=== PATIENT | female | born 1940 | race African-American/Black ===

== ENCOUNTER 2019-06-30 09:10 | Emergency (ER) | payer BC, MEDICAID, OTHER ==
[~2019-06-30] VITALS: Ht 165.1 cm; Wt 100.0 kg
[~2019-06-30 09:10] MED LIST: ASA; ASPI-986; ATOR10TA; CRESTOR; FLUCONAZOLE; HYDR-4009; LEVOTHYROXINE; OXYB15TA9; OXYBUTYNIN; SYN150; VERA240C2; VERAPAMIL
[2019-06-30] MEDS ORDERED: OXYCODONE HCL/ACETAMINOPHEN 5/325MG TABLET PO ONE (09:30)
[2019-06-30] MEDS ORDERED: MORPHINE SULFATE 4 MG/ML CPJ (NOT FOR IM USE) IV STA (11:58)
[2019-06-30 12:42] LABS: EOSINOPHILS % 0.1 % (0.0-5.0); HEMATOCRIT. 34.3 % (36.0-48.0); HEMOGLOBIN. 11.5 g/dL (12.0-16.0); LYMPHOCYTES % 57.2 % (20.0-50.0); MEAN CORPUSCULAR HEMOGLOBIN 27.8 pg (28.0-32.0); MEAN CORPUSCULAR VOLUME 82.8 fL (81.0-99.0); MONOCYTES % 3.8 % (2.0-8.0); NEUTROPHILS % 37.9 % (40.0-76.0); PLATELET 200 x1000/uL (130-400); RED BLOOD CELL COUNT 4.14 mill/uL (4.2-5.4); RED CELL DISTRIBUTION WIDTH 15.8 % (11.6-14.6)
[2019-06-30 12:47] LABS: CHLORIDE 105 mEq/L (98-107)
[2019-06-30 12:51] LABS: PROTHROMBIN TIME 11.1 sec (9.6-11.0)
[2019-06-30 14:23] VITALS: BP 156/71
== END 2019-06-30 14:39 | disposition home or self-care (01) ==
LOC: ER 09:10 → SUPCPDRO 12:06 → ER 14:39
DX: M25.552 Pain in left hip (principal); I10 Essential (primary) hypertension; Z88.2 Allergy status to sulfonamides; Z79.899 Other long term (current) drug therapy; Z79.82 Long term (current) use of aspirin; Z90.49 Acquired absence of other specified parts of digestive tract
CPT/HCPCS: 36415; 72192; 73502; 73700; 80053; 85025; 85610; 96374; 99285; J2270

== ENCOUNTER 2022-05-29 12:43 | Emergency (ER) | payer BC ==
[~2022-05-29] VITALS: Ht 157.5 cm; Wt 104.0 kg
[2022-05-29] MEDS ORDERED: ONDANSETRON HCL 4MG/2ML INJ IV STA (15:11)
[2022-05-29] MEDS ORDERED: MORPHINE SULFATE 4 MG/ML CPJ (NOT FOR IM USE) IV STA (15:11)
[2022-05-29] MEDS ORDERED: SODIUM CHLORIDE 0.9% 1,000 ML IV ONE (15:15)
[2022-05-29 16:48] LABS: HEMATOCRIT. 26.2 % (36.0-48.0); HEMOGLOBIN. 8.8 g/dL (12.0-16.0); MEAN CORPUSCULAR HEMOGLOBIN 31.8 pg (28.0-32.0); MEAN CORPUSCULAR VOLUME 95.2 fL (81.0-99.0); MEAN PLATELET VOLUME 6.3 fl (7.4-10.4); PLATELET 150 x1000/uL (130-400); RED BLOOD CELL COUNT 2.75 mill/uL (4.2-5.4)
[2022-05-29 16:55] LABS: CHLORIDE 105 mEq/L (98-107)
[2022-05-29] MEDS ORDERED: POTASSIUM CHLORIDE 20MEQ TABLET SR PO ONE (18:00)
[2022-05-29 18:31] LABS: PLATELET ESTIMATE NORMAL
[2022-05-29 19:11] LABS: CLARITY URINE CLOUDY (CLEAR); COLOR URINE DARK YELLOW (YELLOW); KETONES URINE TRACE (NEGATIVE); LEUKOCYTE ESTERASE URINE 2+ (NEGATIVE); NITRITE URINE POSITIVE (NEGATIVE); OCCULT BLOOD URINE 1+ (NEGATIVE); PH URINE 5.5 (4.5-8.0); PROTEIN URINE 1+ (NEGATIVE); SPECIFIC GRAVITY URINE 1.019 (1.005-1.030)
[2022-05-29] MEDS ORDERED: CEFTRIAXONE 1GM PREMIX 50 ML IV ONE (19:15)
[2022-05-29] MEDS ORDERED: HYDR-4001 MT (19:16)
[2022-05-29] MEDS ORDERED: CEPH500C2 MT (19:16)
[2022-05-29] MEDS ORDERED: HYDROCODONE/ACETAMINOPHEN 5/325MG TABLET PO ONE (20:30)
[2022-05-29 21:52] VITALS: BP 138/79
== END 2022-05-29 21:59 | disposition home or self-care (01) ==
LOC: ER 13:10
DX: N39.0 Urinary tract infection, site not specified (principal); E87.6 Hypokalemia; I25.2 Old myocardial infarction; I10 Essential (primary) hypertension; Z90.49 Acquired absence of other specified parts of digestive tract; Z86.39 Personal history of other endocrine, nutritional and metabolic disease
CPT/HCPCS: 36415; 71045; 74176; 80053; 81003; 83690; 83880; 84484; 85025; 85730; 87086; 87186; 93005; 96361; 96374; 96375; 99285; J0696; J2270; J2405; J7030